=== PATIENT | female | born 2000 | race Caucasian/White ===

== ENCOUNTER → 2020-04-22 12:26 | Outpatient (CLI) | payer OTHER, SELFPAY ==
--- NOTE | 2020-04-22 | DI.RAD.S_ITS ---
PROCEDURE: XR FOOT LT MIN 3V INDICATIONS: Bilateral exostoses TECHNIQUE: 3 views of the foot were acquired. COMPARISON: None. FINDINGS: Bones: No fractures or dislocations. No suspicious bony lesions. Slight osteophytic spurring lateral border of the first MTP joint. Soft tissues: No tibiotalar joint effusion. Achilles tendon appears normal. IMPRESSION: No trauma found, no exostosis seen. Mild osteophyte formation versus normal variant sharp angulation at the lateral border of the first MTP joint articular margins. Dictated by: Tadeo Bojorquez M.D. on 04/22/2020 at 13:52 Approved by: Tadeo Bojorquez M.D. on 04/22/2020 at 13:53
--- NOTE | 2020-04-22 | DI.RAD.S_ITS ---
PROCEDURE: XR FOOT RT MIN 3V INDICATIONS: Bilateral exostoses TECHNIQUE: 3 views of the foot were acquired. COMPARISON: [facility], CR, XR FOOT LT MIN 3V, 04/22/2020, 12:31. FINDINGS: Bones: No fractures or dislocations. No suspicious bony lesions. What appears to be osteoarthritic spurring is seen at the lateral border of the first MTP joint, slightly more prominent than that seen on the left. Soft tissues: No tibiotalar joint effusion. Achilles tendon appears normal. IMPRESSION: Small spurs appear present at the lateral border of the first MTP joint, slightly more prominent than those seen on the left on imaging performed same day left foot. At the age of 19 this is somewhat unusual but these spurs are small in size and do not have a radiographic appearance of exostosis given their presence both at the distal and proximal lateral margin of the joint space. Dictated by: Tadeo Bojorquez M.D. on 04/22/2020 at 13:53 Approved by: Tadeo Bojorquez M.D. on 04/22/2020 at 13:56
== END ==
PROVIDERS: PCP Family Medicine; Referring Provider Family Medicine; Visit Provider Family Medicine
DX: Q78.6 Multiple congenital exostoses (principal)
CPT/HCPCS: 73630